=== PATIENT | female | born 2000 ===

== ENCOUNTER → 2025-04-24 | Outpatient (CLI) | payer OTHER | LOC: LAB 08:57 → LAB SHORT 08:57 | PROVIDERS: Advanced Practice Midwife | DX: Z01.419 Encounter for gynecological examination (general) (routine) without abnormal findings (principal) | CPT/HCPCS: 87624; G0145 ==

== ENCOUNTER → 2025-06-11 | Outpatient (CLI) | payer OTHER | LOC: LAB 09:52 → LAB SHORT 09:52 | DX: N39.0 Urinary tract infection, site not specified (principal) | CPT/HCPCS: 87077; 87086; 87186 ==